=== PATIENT | male | born 1990 | race Caucasian/White ===

== ENCOUNTER 2019-08-11 19:26 | Emergency (ER) | payer BC ==
[~2019-08-11] VITALS: Ht 172.7 cm; Wt 84.1 kg
[~2019-08-11 19:26] MED LIST: ACYCLOVIR400 MG PO; LORTAB 5/500 501 TAB PO; MAGIC MOUTH PO; NO HOME MEDICATIONS
[2019-08-11 19:29] VITALS: BP 135/90; TEMP 97.8
[2019-08-11] MEDS ORDERED: CLEOCIN HCL300 MG PO ×5 (20:33→21:42)
[2019-08-11] MEDS ORDERED: NORCO 325 MG-51 TAB PO (20:33)
[2019-08-11 20:51] VITALS: PULSE 65
== END 2019-08-11 20:51 | disposition home or self-care (01) ==
LOC: COL.ER 19:26
DX: K04.7 Periapical abscess without sinus (principal); K02.9 Dental caries, unspecified; F17.210 Nicotine dependence, cigarettes, uncomplicated

== ENCOUNTER 2019-12-28 11:53 | Emergency (ER) | payer BC ==
[~2019-12-28] VITALS: Ht 172.7 cm; Wt 84.1 kg
[~2019-12-28 11:53] MED LIST changes: +CLEOCIN HCL300 MG PO; +NORCO 325 MG-51 TAB PO
[2019-12-28 11:59] VITALS: BP 140/77; PULSE 100; TEMP 97.8
== END 2019-12-28 12:34 | disposition home or self-care (01) ==
LOC: COL.ER 11:53
DX: T84.018A Broken internal joint prosthesis, other site, initial encounter (principal)